=== PATIENT | female | born 1955 | race African-American/Black ===

== ENCOUNTER 2021-01-20 15:55 | Inpatient (IN) | payer OTHER, MEDICAID ==
[~2021-01-20] VITALS: Ht 160 cm; Wt 40.8 kg
[2021-01-20] MEDS ORDERED: SODIUM CHLORIDE 0.9% 1000ML BAG (SEPSIS BOLUS) IV ONE (16:45)
[2021-01-20] MEDS ORDERED: LEVOFLOXACIN 750MG PREMIX 150 ML IV ONE (16:45)
[2021-01-20 16:48] LABS: BASOPHILS % 0.3 % (0.0-2.0); EOSINOPHILS % 1.1 % (0.0-5.0); HEMATOCRIT. 29.9 % (36.0-48.0); HEMOGLOBIN. 9.6 g/dL (12.0-16.0); LYMPHOCYTES % 9.4 % (20.0-50.0); MEAN CORPUSCULAR HEMOGLOBIN 26.7 pg (28.0-32.0); MEAN CORPUSCULAR VOLUME 83.1 fL (81.0-99.0); MEAN PLATELET VOLUME 7.1 fl (7.4-10.4); MONOCYTES % 6.8 % (2.0-8.0); NEUTROPHILS % 82.4 % (40.0-76.0); PLATELET 444 x1000/uL (130-400); RED CELL DISTRIBUTION WIDTH 16.5 % (11.6-14.6)
[2021-01-20 16:57] LABS: CHLORIDE 110 mEq/L (98-107)
[2021-01-20] MEDS ORDERED: ACETAMINOPHEN 325MG TABLET PO PRN ×2 (20:15→23:45)
[2021-01-20] MEDS ORDERED: ONDANSETRON HCL 4MG/2ML INJ IV PRN (20:15)
[2021-01-20] MEDS ORDERED: VANCOMYCIN 750 MG PREMIX 150 ML IV SCH (21:00)
[2021-01-20 22:22] VITALS: BP 147/79
[2021-01-21] VITALS: BP 124/66
[2021-01-21] MEDS ORDERED: PIPERACILLIN/TAZOBACTAM 3.375 G in DEXT 5% WATER 100 ML IV SCH (06:00)
[2021-01-21 07:30] LABS: BASOPHILS % 0.2 % (0.0-2.0); EOSINOPHILS % 1.1 % (0.0-5.0); HEMATOCRIT. 24.7 % (36.0-48.0); LYMPHOCYTES % 14.7 % (20.0-50.0); MEAN CORPUSCULAR HEMOGLOBIN 27.1 pg (28.0-32.0); MEAN CORPUSCULAR VOLUME 83.4 fL (81.0-99.0); MEAN PLATELET VOLUME 7.2 fl (7.4-10.4); MONOCYTES % 7.4 % (2.0-8.0); NEUTROPHILS % 76.6 % (40.0-76.0); PLATELET 411 x1000/uL (130-400); RED BLOOD CELL COUNT 2.96 mill/uL (4.2-5.4); RED CELL DISTRIBUTION WIDTH 16.6 % (11.6-14.6)
[2021-01-21 07:44] LABS: CHLORIDE 112 mEq/L (98-107)
[2021-01-21 08:00] VITALS: BP 124/67
[2021-01-21] MEDS ORDERED: POTASSIUM CHLORIDE 20MEQ TABLET SR PO NR (09:00)
[2021-01-21] MEDS ORDERED: METOPROLOL TARTRATE 25MG TABLET PO NR (09:00)
[2021-01-21] MEDS: PANTOPRAZOLE SODIUM 40 MG/VIAL IV SCH (09:07)
[2021-01-21] MEDS: LEVETIRACETAM 500MG TABLET PO SCH ×2 (09:07→22:01)
[2021-01-21] MEDS: ENOXAPARIN 40MG/0.4ML SYR SUBCUT SCH (09:07)
[2021-01-21] MEDS: DEXT 5%/0.45% NACL 1000ML 1,000 ML IV SCH ×2 (11:00→13:36)
[2021-01-21 12:00] VITALS: BP 101/61
[2021-01-21] MEDS: LEVOFLOXACIN 500MG PREMIX 100 ML IV SCH (13:35)
[2021-01-21 16:00] VITALS: BP 106/61
[2021-01-21] MEDS: METOPROLOL TARTRATE 25MG TABLET PO SCH (21:00)
[2021-01-22] MEDS: VANCOMYCIN 750 MG PREMIX 150 ML IV SCH ×2 (02:38→13:00)
[2021-01-22 07:04] LABS: BASOPHILS % 0.3 % (0.0-2.0); EOSINOPHILS % 1.8 % (0.0-5.0); HEMOGLOBIN. 8.1 g/dL (12.0-16.0); LYMPHOCYTES % 22.4 % (20.0-50.0); MEAN CORPUSCULAR HEMOGLOBIN 26.9 pg (28.0-32.0); MEAN CORPUSCULAR VOLUME 82.5 fL (81.0-99.0); MEAN PLATELET VOLUME 6.9 fl (7.4-10.4); MONOCYTES % 7.1 % (2.0-8.0); NEUTROPHILS % 68.4 % (40.0-76.0); PLATELET 420 x1000/uL (130-400); RED BLOOD CELL COUNT 3.02 mill/uL (4.2-5.4); RED CELL DISTRIBUTION WIDTH 16.6 % (11.6-14.6)
[2021-01-22 07:09] LABS: CHLORIDE 111 mEq/L (98-107)
[2021-01-22] MEDS: PANTOPRAZOLE SODIUM 40 MG/VIAL IV SCH (09:00)
[2021-01-22] MEDS: LEVOFLOXACIN 500MG PREMIX 100 ML IV SCH (11:00)
[2021-01-22] MEDS: LEVETIRACETAM 500MG TABLET PO SCH ×2 (11:58→22:07)
[2021-01-22] MEDS: METOPROLOL TARTRATE 25MG TABLET PO SCH ×2 (11:58→22:08)
[2021-01-22] MEDS: ENOXAPARIN 40MG/0.4ML SYR SUBCUT SCH (11:59)
[2021-01-22] MEDS: DEXT 5%/0.45% NACL 1000ML 1,000 ML IV SCH (15:56)
[2021-01-22 20:00] VITALS: BP 133/84
[2021-01-23] VITALS: BP 129/71
[2021-01-23] MEDS: VANCOMYCIN 750 MG PREMIX 150 ML IV SCH ×2 (00:35→12:11)
[2021-01-23 04:00] VITALS: BP 118/65
[2021-01-23 08:00] VITALS: BP 128/80
[2021-01-23] MEDS: SODIUM HYPOCHLORITE 0.125% 473ML SOLUTION TOP SCH ×2 (09:00→16:45)
[2021-01-23] MEDS: METOPROLOL TARTRATE 25MG TABLET PO SCH ×2 (09:34→21:00)
[2021-01-23] MEDS: LEVETIRACETAM 500MG TABLET PO SCH ×2 (09:34→21:00)
[2021-01-23] MEDS: FAMOTIDINE 20MG/2ML VIAL IV SCH (09:35)
[2021-01-23] MEDS: ENOXAPARIN 40MG/0.4ML SYR SUBCUT SCH (09:36)
[2021-01-23] MEDS: LEVOFLOXACIN 500MG TABLET PO SCH (10:32)
[2021-01-23 12:00] VITALS: BP 139/76
[2021-01-23] MEDS ORDERED: LEVO500T89 MT (12:58)
[2021-01-23] MEDS ORDERED: SULF1TAB48 MT (12:58)
[2021-01-23 16:00] VITALS: BP 109/64
[2021-01-23] MEDS: DEXT 5%/0.45% NACL 1000ML 1,000 ML IV SCH (16:47)
[2021-01-23 21:20] VITALS: BP 88/23
[2021-01-24 00:05] VITALS: BP 128/70
[2021-01-24] MEDS: VANCOMYCIN 750 MG PREMIX 150 ML IV SCH ×2 (00:29→12:05)
[2021-01-24 04:20] VITALS: BP 116/63
[2021-01-24] MEDS: DEXT 5%/0.45% NACL 1000ML 1,000 ML IV SCH (06:33)
[2021-01-24 08:00] VITALS: BP 126/80
[2021-01-24] MEDS: FAMOTIDINE 20MG/2ML VIAL IV SCH (09:29)
[2021-01-24] MEDS: LEVETIRACETAM 500MG TABLET PO SCH (09:29)
[2021-01-24] MEDS: METOPROLOL TARTRATE 25MG TABLET PO SCH (09:29)
[2021-01-24] MEDS: ENOXAPARIN 40MG/0.4ML SYR SUBCUT SCH (09:30)
[2021-01-24] MEDS: LEVOFLOXACIN 500MG TABLET PO SCH (11:46)
[2021-01-24 12:00] VITALS: BP 102/73
[2021-01-24] MEDS: SODIUM HYPOCHLORITE 0.125% 473ML SOLUTION TOP SCH (15:36)
[2021-01-24 16:00] VITALS: BP 102/54
[2021-01-24 16:28] VITALS: BP 102/54
== END 2021-01-24 17:45 | disposition home health service (06) | DRG 871 ==
LOC: ER 15:55 → 6EST 19:40 → EDBEDREQ 19:53 → EDBEDREQTM 19:53 → EDBEDREQSVC 19:53 → ENRESERV 21:15
PROVIDERS: ADMIT Internal Medicine; ATTEND Internal Medicine
DX: A41.9 Sepsis, unspecified organism (principal); L89.154 Pressure ulcer of sacral region, stage 4; E43 Unspecified severe protein-calorie malnutrition; Z68.1 Body mass index [BMI] 19.9 or less, adult; D64.9 Anemia, unspecified; E87.8 Other disorders of electrolyte and fluid balance, not elsewhere classified; G35 Multiple sclerosis; Z74.01 Bed confinement status; Z88.0 Allergy status to penicillin; Z79.899 Other long term (current) drug therapy
CPT/HCPCS: 36415; 71045; 80048; 80053; 80202; 83605; 84145; 85025; 92610; 93005; 96365; 99291; C9113; J1650; J1956; J3370; J3490; J7030